=== PATIENT | female | born 1985 | race Hispanic/Latino ===

== ENCOUNTER 2019-01-30 20:53 | Emergency (ER) | payer OTHER, SELFPAY ==
--- NOTE | 2019-01-30 21:32 | RAD ---
XR Hand Rt 3 View STANDARD History: Pain Comparison: None. Findings: No acute fracture or malalignment. Soft tissues are unremarkable. Impression: No acute fracture or malalignment.
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
== END 2019-01-30 21:50 | disposition home or self-care (01) ==
LOC: SCSER 20:53
DX: S56.911A Strain of unspecified muscles, fascia and tendons at forearm level, right arm, initial encounter (principal); S66.911A Strain of unspecified muscle, fascia and tendon at wrist and hand level, right hand, initial encounter; S46.911A Strain of unspecified muscle, fascia and tendon at shoulder and upper arm level, right arm, initial encounter; M54.12 Radiculopathy, cervical region; E66.9 Obesity, unspecified; J45.909 Unspecified asthma, uncomplicated; F41.9 Anxiety disorder, unspecified; F17.210 Nicotine dependence, cigarettes, uncomplicated; V89.2XXA Person injured in unspecified motor-vehicle accident, traffic, initial encounter